=== PATIENT | female | born 1995 | race Caucasian/White ===

== ENCOUNTER 2016-09-25 22:28 | Emergency (ER) | payer OTHER ==
--- NOTE | ~2016-09-25 | CT4 ---
[facility] A Service of [facility] RADIOLOGY TEXT RESULTS PATIENT: SIMON CELESTIN LOCATION: [facility] : [birth year] UNIT #: [id number] AGE: [address]: Raymon Maguire DO SEX: F ORDER DR: [id number] [facility] [address] [place], [place] [address] [id number] E MR#: [id number] Acc #: [id number] NAME: SIMON CELESTIN : 1995 SEX: F STUDY DATE/TIME: 09/25/2016 21:51 UNIT: [facility] ROOM: STUDY DESCRIPTION: CT Abd and Pelv Wo Cont Attending Physician: Raymon Maguire D.O. Ordering Physician: Raymon Maguire D.O. MEDICAL IMAGING REPORT This report is preliminary unless electronic signature is present EXAM CT abdomen and pelvis without contrast HISTORY Right right-sided flank pain starting yesterday. TECHNIQUE This CT exam was performed with one or more of the following radiation dose reduction techniques: automatic exposure control, adjustment of mA and/or kV according to patient size, and iterative reconstruction. FINDINGS Axial images were performed through the abdomen and pelvis without contrast. Multiplanar reconstructed images reviewed at a workstation. Abdomen: The lung bases unremarkable. Liver, spleen, gallbladder, pancreas, kidneys and adrenal glands unremarkable. No free air free fluid. Visualized GI tract unremarkable. The appendix not clearly identified but no focal inflammatory changes right lower quadrant. Pelvis: Bladder uterus and adnexa appear normal. The osseous structures and soft tissues appear normal. IMPRESSION No acute intraabdominal intrapelvic pathology identified. In particular, no evidence of kidney stone. The appendix not clearly identified, but no inflammatory changes right lower quadrant. Dictated by.Mary Ann. Faby Arriola M.D. [facility] A Service of [facility] RADIOLOGY TEXT RESULTS PATIENT: SIMON CELESTIN LOCATION: [facility] : [birth year] UNIT #: [id number] AGE: [address]: Hottman,Raymon M DO SEX: F ORDER DR: THIS IS AN ELECTRONICALLY VERIFIED REPORT Faby Arriola M.D. at 09/26/2016 11:00 PM Cyndi TD: 09/26/2016 00:45 JOB #: [id number] MEDICAL IMAGING REPORT Page 1 of 1 COPY
[2016-09-25 19:33] LABS: URINE SOURCE CLEAN CATCH
[2016-09-25 19:39] LABS: URINE APPEARANCE TURBID; URINE BILIRUBIN NEG (NEG); URINE BLOOD 2+ (NEG); URINE COLOR YELLOW; URINE GLUCOSE NEG (NEG); URINE KETONE NEG (NEG); URINE LEUKOCYTE ESTERASE 3+ (NEG); URINE NITRATE POS (NEG); URINE PH 5.5 (5-8); URINE PROTEIN 1+ (NEG); URINE SPECIFIC GRAVITY 1.017 (1.003-1.035)
[2016-09-25 19:42] LABS: CULTURE INDICATED? YES; URINE BACTERIA AUWI 4+ (NEGATIVE); URINE SQUAMOUS EPITHELIAL CELL FEW /[HPF]; UWBCS1 AUWI INNUM (0-5)
[2016-09-25 21:23] LABS: BASOPHIL% 0.2 % (0-2.5); DIFF IND YES; EOSINOPHIL% 0.1 % (0.0-7.0); HEMATOCRIT 39.7 % (35.0-45.0); HEMOGLOBIN 13.4 gm/dL (12.0-16.0); LYMPHOCYTE# 0.8 X10e3 (1.0-3.5); LYMPHOCYTE% 4.9 % (17.0-45.0); MEAN CORPUSCULAR HEMOGLOBIN 29.7 PG (28-34); MEAN CORPUSCULAR HGB CONC 33.8 g/dL (30-36); MEAN PLATELET VOLUME 8.7 FL (6.5-11.5); MONOCYTE# 1.6 X10e3 (0-1.0); NEUTROPHIL# 14.9 X10e3 (1.5-7.1); NEUTROPHIL% 85.8 % (40-75); PLATELET COUNT 210 X10e3 (140-420); RED CELL DISTRIBUTION WIDTH 13.8 % (11.0-15.5); WHITE BLOOD COUNT 17.4 X10e3 (4.0-10.5)
[2016-09-25 21:42] LABS: ANISOCYTOSIS SL; PLATELET ESTIMATE NORMAL (NORMAL)
[2016-09-25 21:43] LABS: ALBUMIN SERUM 4.1 g/dL (3.5-5.0); BILIRUBIN,TOTAL 1.1 mg/dL (0.2-2.0); BUN/CREATININE RATIO 11.42; CALCIUM SERUM 8.8 mg/dL (8.4-10.2); CREATININE SERUM 0.7 mg/dL (0.6-1.4); POTASSIUM 3.4 mmol/L (3.5-5.1)
== END 2016-09-26 00:50 | disposition home or self-care (01) ==
LOC: CED 22:28
PROVIDERS: Emergency Medicine
DX: N10 Acute pyelonephritis (principal); F17.210 Nicotine dependence, cigarettes, uncomplicated
CPT/HCPCS: 36415; 74176; 80053; 81003; 83605; 83690; 84703; 85025; 87086; 87088; 87186; 96361; 96365; 96375; 99284; J0696; J1885